=== PATIENT | male | born 1970 | race Caucasian/White ===

== ENCOUNTER 2017-02-12 13:39 | Inpatient (IN) | payer OTHER ==
[2017-02-12 15:51] VITALS: BMI 25.5
--- NOTE | 2017-02-12 20:13 | HP ---
CIWA Score - CIWA Score Nausea/Vomitin-Mild Nausea/No Vomiting Muscle Tremors: 1-None Visible, but [place] Anxiety: 3 Agitation: 1-Slight > Activity Paroxysmal Sweats: 2 Orientation: 1-Uncertain about Date Tacttile Disturbances: 0-None Auditory Disturbances: 1-Very Mild Visual Disturbances: 1-Very Mild Sensitivity Headache: 2-Mild CIWA-Ar Total Score: 13 Admission ROS BHS - HPI Chief Complaint: WITHDRAWAL SYMPTOMS Allergies/Adverse Reactions: Allergies Allergy/AdvReac Type Severity Reaction Status Date / Time Fish Containing Products Allergy Severe Hives Verified 02/12/17 17:53 History of Present Illness: 46 Y.O. MAN WITH A HISTORY OF ALCOHOL AND BENZODIAZEPINE DEPENDENCE IS HERE FOR DETOX. HE REPORTS HE LAST COMPLETED DETOX [address] AGO [address] [facility]. HE STATES HAVING A 5 YEAR HISTORY OF SOBRIETY. HE IS CURRENTLY ENROLLED IN A MMTP AND REPORTS LAST DAY MEDICATED WAS 02/12/17. Exam Limitations: No Limitations - Ebola screening Have you traveled outside of the country in the last 21 days: No Have you had contact with anyone from an Ebola affected area: No Have you been sick,other than usual withdrawal symptoms: No Do you have a fever: No - Review of Systems Constitutional: Chills EENT: reports: Blurred Vision Respiratory: reports: No Symptoms reported Cardiac: reports: No Symptoms Reported GI: reports: No Symptoms Reported : reports: No Symptoms Reported Musculoskeletal: reports: Back Pain Integumentary: reports: No Symptoms Reported Neuro: reports: Headache Endocrine: reports: No Symptoms Reported Hematology: reports: No Symptoms Reported Psychiatric: reports: Mood/Affect Appropiate, Anxious, Depressed Other Systems: Reviewed and Negative Patient History - Patient Medical History Hx Anemia: No Hx Asthma: Yes Hx Chronic Obstructive Pulmonary Disease (COPD): No Hx Cancer: No Hx Cardiac Disorders: Yes (HEART MURMUR ) Hx Congestive Heart Failure: No Hx Hypertension: No Hx Hypercholesterolemia: No Hx Pacemaker: No HX Cerebrovascular Accident: No Hx Seizures: No Hx Dementia: No Hx Diabetes: No Hx Gastrointestinal Disorders: Yes (GERD ) Hx Liver Disease: No Hx Genitourinary Disorders: No Hx Sexually Transmitted Disorders: No Hx Renal Disease (ESRD): No Hx Thyroid Disease: No Hx Human Immunodeficiency Virus (HIV): Yes Hx Hepatitis C: No Hx Depression: Yes Hx Suicide Attempt: No Hx Bipolar Disorder: Yes Hx Schizophrenia: Yes - Patient Surgical History Past Surgical History: Yes Hx Neurologic Surgery: No Hx Cataract Extraction: No Hx Cardiac Surgery: No Hx Lung Surgery: No Hx Breast Surgery: No Hx Breast Biopsy: No Hx Abdominal Surgery: No Hx Appendectomy: No Hx Cholecystectomy: No Hx Genitourinary Surgery: No Hx Section: No Other Surgical History: Anesthesia Reaction: No - PPD History Previous Implant?: Yes Documented Results: Negative w/o proof Implanted On Prior [facility] Admission?: No PPD to be Administered?: Yes - Reproductive History Patient is a Female of Child Bearing Age (11 -55 yrs old): No - Smoking Cessation Smoking history: Current every day smoker Have you smoked in the past 12 months: Yes Aproximately how many cigarettes per day: 8 Hx Chewing Tobacco Use: No Initiated information on smoking cessation: Yes 'Breaking Loose' booklet given: 02/12/17 - Substance & Tx. History Hx Alcohol Use: Yes Hx Substance Use: Yes Substance Use Type: Alcohol, Cocaine Hx Substance Use Treatment: Yes (DETOX AT [facility] 1 YEAR AGO; NEVER BEEN TO REHAB ) - Substances Abused Alcohol Route: Oral Frequency: Daily Amount used: LIQUOR- 2 PINTS, BEER- 2 SIX PACK Age of first use: 19 Date of Last Use: 02/11/17 Crack Route: Smoking Frequency: Daily Amount used: 3 BAGS Age of first use: 16 Date of Last Use: 02/11/17 Family Disease History - Family Disease History Family Disease History: Diabetes: Father, Heart Disease: Father, Respiratory: Mother Admission Physical Exam S - Vital Signs Vital Signs: Vital Signs - 24 hr 02/12/17 15:48 Temperature 98 F Pulse Rate 86 Respiratory 18 Rate Blood Pressure 115/75 - Physical General Appearance: Yes: Disheveled, Anxious HEENTM: Yes: Hearing grossly Normal, Normal ENT Inspection, Normocephalic Respiratory: Yes: Chest Non-Tender, Lungs Clear, Normal Breath Sounds, No Respiratory Distress, No Accessory Muscle Use Neck: Yes: No masses,lesions,Nodules Breast: Yes: Breast Exam Deferred Cardiology: Yes: Regular Rhythm, Regular Rate Abdominal: Yes: Within Normal Limits, Normal Bowel Sounds Genitourinary: Yes: Other (NO COMPLAINTS REPORTED) Back: Yes: Normal Inspection Musculoskeletal: Yes: full range of Motion, Gait Steady Extremities: Yes: Normal Capillary Refill, Normal Inspection, Normal Range of Motion, Non-Tender Neurological: Yes: tread booker II-XII NML intact, Alert, Motor Strength 5/5, Normal Mood /Affect, Normal Response Integumentary: Yes: Normal Color, Dry, Warm Lymphatic: Yes: Within Normal Limits - Diagnostic (1) Alcohol dependence with uncomplicated withdrawal Current Visit: Yes Status: Chronic (2) Uncomplicated opioid dependence Current Visit: Yes Status: Chronic (3) GERD (gastroesophageal reflux disease) Current Visit: Yes Status: Chronic (4) HIV (human immunodeficiency virus infection) Current Visit: Yes Status: Chronic (5) Asthma Current Visit: Yes Status: Chronic Cleared for Admission [facility] - Detox or Rehab [facility] Level of Care: Medically Managed Detox Regimen/Protocol: Valium S Breath Alcohol Content Breath Alcohol Content: 0 Urine Drug Screen - Results Drug Screen Negative: No Urine Drug Screen Results: THC-Marijuana, ASHUTOSH-Cocaine, OPI-Opiates, MTD- Methadone, TCA-Tricyclic Antidepress
[2017-02-12] MEDS ORDERED: MAGNESIUM HYDROX 2400MG/30ML ORAL SUSPENSION 30 ML CUP PO PRN (20:21)
[2017-02-12] MEDS ORDERED: MAGNESIUM CITRATE 300 ML BOTTLE PO PRN (20:21)
[2017-02-12] MEDS ORDERED: MENTHOL/PHENOL 1 EACH UD MM PRN (20:21)
[2017-02-12] MEDS ORDERED: IBUPROFEN 400 MG TABLET (FP) PO PRN (20:21)
[2017-02-12] MEDS ORDERED: diazePAM 5 MG TABLET PO PRN (20:21)
[2017-02-12] MEDS ORDERED: MAG HYDROX/AL HYDROX/SIMETH 30 ML UNIT-DOSE CUP PO PRN (20:21)
[2017-02-12] MEDS ORDERED: diazePAM 5 MG TABLET PO ONE (20:21)
[2017-02-12] MEDS ORDERED: guaiFENesin/D-METHORPHAN HB 10 ML UNIT-DOSE CUPS PO PRN (20:21)
[2017-02-12] MEDS ORDERED: hydrOXYzine PAMOATE 50 MG CAPSULE (FP) PO PRN (20:21)
[2017-02-12] MEDS ORDERED: diphenhydrAMINE HCL 50 MG CAPSULE PO PRN (20:21)
[2017-02-12] MEDS ORDERED: P-EPHED 60MG/TRIPROLIDI 2.5MG TABLET PO PRN (20:21)
[2017-02-12] MEDS ORDERED: LOPERAMIDE HCL 2 MG CAPSULE PO PRN (20:21)
[2017-02-12] MEDS ORDERED: ACETAMINOPHEN 325 MG TABLET (FP) PO PRN (20:21)
[2017-02-12] MEDS ORDERED: ALBUTEROL SO4 6.7 GM HFA INHALER IH PRN (20:35)
[2017-02-12] MEDS: THIAMINE HCL 100 MG TABLET (FP) PO SCH (21:46)
[2017-02-12] MEDS: diazePAM 5 MG TABLET PO SCH (21:49)
[2017-02-12] MEDS ORDERED: ALBUTEROL SO4 6.7 GM HFA INHALER IH SCH (22:00)
[2017-02-13 01:43] LABS: URINE APPEARANCE SLCLOUDY; URINE BLOOD NEGATIVE (NEGATIVE); URINE COLOR AMBER; URINE GLUCOSE (UA) NEGATIVE (NEGATIVE); URINE KETONE TRACE (NEGATIVE); URINE LEUK ESTERASE NEGATIVE (NEGATIVE); URINE NITRITE NEGATIVE (NEGATIVE); URINE UROBILINOGEN 4.0 E.U/dl mg/dL (0.2-1.0)
[2017-02-13 01:48] LABS: URINE PROTEIN 1+ (NEGATIVE)
[2017-02-13 01:54] LABS: URINE MUCUS MANY; URINE RBC 1 /hpf (0-3); URINE WBC 1 /hpf (3-5)
[2017-02-13] MEDS: diazePAM 5 MG TABLET PO SCH ×3 (05:53→22:07)
[2017-02-13] MEDS: METHADONE HCL 40 MG DISPERSABLE TABLET PO SCH (08:37)
--- NOTE | 2017-02-13 09:53 | EKG ---
Test Reason : Blood Pressure : / mmHG Vent. Rate : 075 BPM Atrial Rate : 075 BPM P-R Int : 148 ms QRS Dur : 074 ms QT Int : 410 ms P-R-T Axes : 053 055 040 degrees QTc Int : 457 ms NORMAL SINUS RHYTHM NORMAL ECG NO PREVIOUS ECGS AVAILABLE Confirmed by NAYE BAGLEY, IVELISSE ([id number]) on 02/13/2017 9:52:58 AM Referred By: Confirmed By:IVELISSE YANCEY MD
[2017-02-13 09:56] LABS: MCH 30.3 pg (25.7-33.7); MCHC 32.4 g/dl (32.0-35.9); MEAN CELL VOLUME 93.6 fl (80-96); MEAN PLT VOLUME 9.7 fl (7.5-11.1); PLATELET COUNT 114 K/MM3 (134-434); WHITE BLOOD COUNT 3.3 K/mm3 (4.0-10.0)
[2017-02-13] MEDS: PRENATAL VITAMINS W/ FOLIC ACID TABLET (FP) PO SCH (10:07)
[2017-02-13] MEDS: RANITIDINE HCL 150 MG TABLET (FP) PO SCH (10:07)
[2017-02-13] MEDS: PATIENT'S OWN MEDICATION (NON-FORMULARY) (Emtricitabine/Tenofov Alafenam [Descovy 200-25 M PO SCH (10:09)
[2017-02-13 10:54] LABS: ALBUMIN 3.1 g/dl (3.4-5.0); ALK PHOS 102 U/L (45-117); ANION GAP 9 (8-16); BILIRUBIN,TOTAL 0.6 mg/dL (0.2-1.0); CALCIUM 8.3 mg/dL (8.5-10.1); CO2 28 mmol/L (21-32); CREATININE 0.8 mg/dL (0.7-1.3); GLUCOSE,RANDOM 99 mg/dL (74-106); SGOT/AST 59 U/L (15-37); SGPT/ALT 45 U/L (12-78); TOT PROT 6.3 g/dl (6.4-8.2)
--- NOTE | 2017-02-13 12:07 | PN ---
S CIWA - CIWA Score Nausea/Vomitin Muscle Tremors: 4-Moderate,w/Arms Extend Anxiety: 4-Mod. Anxious/Guarded Agitation: 2 Paroxysmal Sweats: No Perspiration Orientation: 4Disoriented Place/Person Tacttile Disturbances: 3-Moderate Itch/Numb/Burn Auditory Disturbances: 0-None Visual Disturbances: 0-None Headache: 0-None Present CIWA-Ar Total Score: 20 BHS Progress Note (SOAP) Subjective: Nausea, Anxious, Tremors. Objective: PT. A & O X 2 (DISORIENTED ABOUT CURRENT LOCATION). PT. OBSERVED AMBULATING ON UNIT. NO ACUTE DISTRESS. 02/13/17 12:01 Vital Signs Temperature 97.4 F L 02/13/17 09:19 Pulse Rate 95 H 02/13/17 09:19 Respiratory Rate 18 02/13/17 09:19 Blood Pressure 119/79 02/13/17 09:19 O2 Sat by Pulse Oximetry (%) Laboratory Tests 02/12/17 02/13/17 02/13/17 23:09 07:00 07:00 WBC 3.3 L RBC 4.06 Hgb 12.3 Hct 38.0 MCV 93.6 MCH 30.3 MCHC 32.4 RDW 12.0 Plt Count 114 L MPV 9.7 Sodium 140 Potassium 3.5 Chloride 103 Carbon Dioxide 28 Anion Gap 9 BUN 11 Creatinine 0.8 Creat Clearance w eGFR > 60 Random Glucose 99 Calcium 8.3 L Total Bilirubin 0.6 AST 59 H ALT 45 Alkaline Phosphatase 102 Total Protein 6.3 L Albumin 3.1 L Urine Color Purvi Urine Appearance Slcloudy Urine pH 5.0 Ur Specific [place] >= 1.030 H Urine Protein 1+ H Urine Glucose (UA) Negative Urine Ketones Trace H Urine Blood Negative Urine Nitrite Negative Urine Bilirubin 2.0 Urine Urobilinogen 4.0 e.u/dl Urine RBC 1 Urine WBC 1 Ur Epithelial Cells Rare Urine Mucus Many RPR Titer 02/13/17 07:00 WBC RBC Hgb Hct MCV MCH MCHC RDW Plt Count MPV Sodium Potassium Chloride Carbon Dioxide Anion Gap BUN Creatinine Creat Clearance w eGFR Random Glucose Calcium Total Bilirubin AST ALT Alkaline Phosphatase Total Protein Albumin Urine Color Urine Appearance Urine pH Ur Specific [place] Urine Protein Urine Glucose (UA) Urine Ketones Urine Blood Urine Nitrite Urine Bilirubin Urine Urobilinogen Urine RBC Urine WBC Ur Epithelial Cells Urine Mucus RPR Titer Nonreactive LABS NOTED. HCV AB RESULT PENDING. 02/13/17 12:07 Assessment: 02/13/17 12:02 WITHDRAWAL SYMPTOMS. Plan: CONTINUE DETOX. REPEAT UA AND CBC (02/15/17) FOR ABNORMAL ADMISSION VALUES.
[2017-02-13] MEDS: TOLNAFTATE 1% CREAM 15 GM TUBE TP SCH ×2 (13:44→22:09)
[2017-02-13] MEDS: CLOTRIMAZOLE 1% CREAM 15 GM TUBE TP SCH ×2 (13:44→22:08)
--- NOTE | 2017-02-13 15:28 | CONSULT ---
[facility] Psychiatric Consult - Data Date of interview: 02/13/17 Admission source: [facility] Identifying data: Readmission to [facility] for this 46 y/o [place] male seeking detox treatment on for heroin,cocaine and alcohol dependence.Patient is single,a father of five,domiciled,unemployed and supported on [employer] funds. Substance Abuse History: Confirmed by patient in this interview. Smoking Cessation. Smoking history: Current every day smoker. Have you smoked in the past 12 months: Yes. Aproximately how many cigarettes per day: 8. Hx Chewing Tobacco Use: No. Initiated information on smoking cessation: Yes. 'Breaking Loose' booklet given: 02/12/17. - Substance & Tx. History. Hx Alcohol Use: Yes. Hx Substance Use: Yes. Substance Use Type: Alcohol, Cocaine. Hx Substance Use Treatment: Yes (DETOX AT [facility] 1 YEAR AGO; NEVER BEEN TO REHAB ). - Substances Abused. Alcohol. Route: Oral. Frequency: Daily. Amount used : LIQUOR- 2 PINTS, BEER- 2 SIX PACK. Age of first use: 19. Date of Last Use: 02/11/17. Crack. Route: Smoking. Frequency: Daily. Amount used: 3 BAGS. Age of first use: 16. Date of Last Use: 02/11/17 Medical History: Remarkable for HIV infection (on ART medications),GERD and bronchial asthma. Psychiatric History: Diagnosed with Bipolar Disorder and Panic Disorder.Patient admits to three psychiatric hospitalizations (all in [facility]Started psychiatric treatment in 1992 (during incarceration).Medicated with klonopin, ambien and elavil (doses not recalled).Mr Bhatt gets his psychiatric OPD services at [facility] in the [place].He is currently on methadone maintenance (120 mg/day).Remote history of one suicide attempt via hanging. Physical/Sexual Abuse/Trauma History: No reported history of abuse. Additional Comment: Urine Drug Screen Results: THC-Marijuana, ASHUTOSH-Cocaine, OPI- Opiates, MTD-Methadone, TCA-Tricyclic Antidepressant.Noted. Mental Status Exam - Mental Status Exam Alert and Oriented to: Time, Place, Person Cognitive Function: Good Patient Appearance: Well Groomed Mood: Hopeful, Euthymic Affect: Appropriate, Normal Range Patient Behavior: Appropriate, Cooperative Speech Pattern: Clear Voice Loudness: Normal Thought Process: Goal Oriented Thought Disorder: Not Present Hallucinations: Denies Suicidal Ideation: Denies Homicidal Ideation: Denies Insight/Judgement: Poor Sleep: Poorly, Difficulty falling asleep Appetite: Good Muscle strength/Tone: Normal Gait/Station: Normal Psychiatric Findings - Problem List ([place] 1, 2,3) (1) Alcohol dependence with uncomplicated withdrawal Current Visit: Yes Status: Chronic (2) Opioid dependence on agonist therapy Current Visit: Yes Status: Acute (3) Cocaine dependence Current Visit: Yes Status: Acute (4) Nicotine dependence Current Visit: Yes Status: Acute (5) Substance induced mood disorder Current Visit: Yes Status: Acute (6) Asthma Current Visit: Yes Status: Chronic (7) GERD (gastroesophageal reflux disease) Current Visit: Yes Status: Chronic (8) HIV (human immunodeficiency virus infection) Current Visit: Yes Status: Chronic (9) Insomnia Current Visit: Yes Status: Acute - Initial Treatment Plan Initial Treatment Plan: Psychoeducation.Detoxification.Medications : ambien 10 mg po hs + elavil 50 mg po hs at patient's request (confirmed by pharmacy claims of 01/14/17 at Pharmacy).Script for olanzapine 20 mg/day is found in claims as well but the patient declines to have this drug resumed in this hospital course.Side effects/benefits discussed (ambien/elavil).Observation.
[2017-02-13] MEDS: THIAMINE HCL 100 MG TABLET (FP) PO SCH (22:07)
[2017-02-13] MEDS: ZOLPIDEM TARTRATE 10 MG TABLET (PARK CARE ONLY) PO PRN (22:07)
[2017-02-14] MEDS: METHADONE HCL 40 MG DISPERSABLE TABLET PO SCH (07:53)
[2017-02-14] MEDS: RANITIDINE HCL 150 MG TABLET (FP) PO SCH (10:18)
[2017-02-14] MEDS: CLOTRIMAZOLE 1% CREAM 15 GM TUBE TP SCH ×2 (10:18→22:10)
[2017-02-14] MEDS: PATIENT'S OWN MEDICATION (NON-FORMULARY) (Emtricitabine/Tenofov Alafenam [Descovy 200-25 M PO SCH (10:18)
[2017-02-14] MEDS: diazePAM 5 MG TABLET PO SCH ×2 (10:18→22:09)
[2017-02-14] MEDS: TOLNAFTATE 1% CREAM 15 GM TUBE TP SCH ×2 (10:18→22:09)
[2017-02-14] MEDS: PRENATAL VITAMINS W/ FOLIC ACID TABLET (FP) PO SCH (10:18)
--- NOTE | 2017-02-14 10:36 | PN ---
[facility] CIWA - CIWA Score Nausea/Vomitin-No Nausea/No Vomiting Muscle Tremors: 4-Moderate,w/Arms Extend Anxiety: 4-Mod. Anxious/Guarded Agitation: 4-Moderately Restless Paroxysmal Sweats: 1-Minimal Palms Moist Orientation: 0-Oriented Tacttile Disturbances: 3-Moderate Itch/Numb/Burn Auditory Disturbances: 0-None Visual Disturbances: 0-None Headache: 0-None Present CIWA-Ar Total Score: 16 S Progress Note (SOAP) Subjective: ANXIETY,TREMORS, SWEATS,FATIGUE. Objective: 02/14/17 10:35 Vital Signs Temperature 97.0 F L 02/14/17 09:10 Pulse Rate 83 02/14/17 09:10 Respiratory Rate 18 02/14/17 09:10 Blood Pressure 133/97 02/14/17 09:10 O2 Sat by Pulse Oximetry (%) Laboratory Last Values WBC 3.3 K/mm3 (4.0-10.0) L 02/13/17 07:00 RBC 4.06 M/mm3 (4.00-5.60) 02/13/17 07:00 Hgb 12.3 GM/dL (11.7-16.9) 02/13/17 07:00 Hct 38.0 % (35.4-49) 02/13/17 07:00 MCV 93.6 fl (80-96) 02/13/17 07:00 MCH 30.3 pg (25.7-33.7) 02/13/17 07:00 MCHC 32.4 g/dl (32.0-35.9) 02/13/17 07:00 RDW 12.0 % (11.9-15.9) 02/13/17 07:00 Plt Count 114 K/MM3 (134-434) L 02/13/17 07:00 MPV 9.7 fl (7.5-11.1) 02/13/17 07:00 Sodium 140 mmol/L (136-145) 02/13/17 07:00 Potassium 3.5 mmol/L (3.5-5.1) 02/13/17 07:00 Chloride 103 mmol/L (98-107) 02/13/17 07:00 Carbon Dioxide 28 mmol/L (21-32) 02/13/17 07:00 Anion Gap 9 (8-16) 02/13/17 07:00 BUN 11 mg/dL (7-18) 02/13/17 07:00 Creatinine 0.8 mg/dL (0.7-1.3) 02/13/17 07:00 Creat Clearance w eGFR > 60 (>60) 02/13/17 07:00 Random Glucose 99 mg/dL (74-106) 02/13/17 07:00 Calcium 8.3 mg/dL (8.5-10.1) L 02/13/17 07:00 Total Bilirubin 0.6 mg/dL (0.2-1.0) 02/13/17 07:00 AST 59 U/L (15-37) H 02/13/17 07:00 ALT 45 U/L (12-78) 02/13/17 07:00 Alkaline Phosphatase 102 U/L (45-117) 02/13/17 07:00 Total Protein 6.3 g/dl (6.4-8.2) L 02/13/17 07:00 Albumin 3.1 g/dl (3.4-5.0) L 02/13/17 07:00 Urine Color Purvi 02/12/17 23:09 Urine Appearance Slcloudy 02/12/17 23:09 Urine pH 5.0 (5.0-8.0) 02/12/17 23:09 Ur Specific [place] >= 1.030 (1.005-1.025) H 02/12/17 23:09 Urine Protein 1+ (NEGATIVE) H 02/12/17 23:09 Urine Glucose (UA) Negative (NEGATIVE) 02/12/17 23:09 Urine Ketones Trace (NEGATIVE) H 02/12/17 23:09 Urine Blood Negative (NEGATIVE) 02/12/17 23:09 Urine Nitrite Negative (NEGATIVE) 02/12/17 23:09 Urine Bilirubin 2.0 (NEGATIVE) 02/12/17 23:09 Urine Urobilinogen 4.0 e.u/dl mg/dL (0.2-1.0) 02/12/17 23:09 Urine RBC 1 /hpf (0-3) 02/12/17 23:09 Urine WBC 1 /hpf (3-5) 02/12/17 23:09 Ur Epithelial Cells Rare /hpf (FEW) 02/12/17 23:09 Urine Mucus Many 02/12/17 23:09 RPR Titer Nonreactive (NONREACTIVE) 02/13/17 07:00 Hepatitis C Antibody >11.0 s/co ratio (0.0-0.9) H 02/12/17 07:00 Assessment: 02/14/17 10:36 WITHDRAWAL SX Plan: CONTINUE DETOX
[2017-02-14 13:18] LABS: URINE APPEARANCE CLEAR; URINE BILIRUBIN NEGATIVE (NEGATIVE); URINE BLOOD NEGATIVE (NEGATIVE); URINE COLOR LTYELLOW; URINE GLUCOSE (UA) NEGATIVE (NEGATIVE); URINE KETONE NEGATIVE (NEGATIVE); URINE LEUK ESTERASE NEGATIVE (NEGATIVE); URINE NITRITE NEGATIVE (NEGATIVE); URINE PROTEIN NEGATIVE (NEGATIVE); URINE UROBILINOGEN NEGATIVE mg/dL (0.2-1.0)
[2017-02-14] MEDS: THIAMINE HCL 100 MG TABLET (FP) PO SCH (22:09)
[2017-02-14] MEDS: ZOLPIDEM TARTRATE 10 MG TABLET (PARK CARE ONLY) PO PRN (22:10)
[2017-02-15] MEDS: METHADONE HCL 40 MG DISPERSABLE TABLET PO SCH (07:38)
[2017-02-15 09:40] LABS: BASOPHIL 0.5 % (0-2.0); EOSINOPHIL 5.3 % (0-4.5); MCHC 32.9 g/dl (32.0-35.9); MEAN PLT VOLUME 9.3 fl (7.5-11.1); NEUTROPHILS 33.4 % (42.8-82.8); PLATELET COUNT 113 K/MM3 (134-434); RDW 12.2 % (11.9-15.9); WHITE BLOOD COUNT 3.7 K/mm3 (4.0-10.0)
[2017-02-15] MEDS: RANITIDINE HCL 150 MG TABLET (FP) PO SCH (10:07)
[2017-02-15] MEDS: CLOTRIMAZOLE 1% CREAM 15 GM TUBE TP SCH ×2 (10:08→22:30)
[2017-02-15] MEDS: PRENATAL VITAMINS W/ FOLIC ACID TABLET (FP) PO SCH (10:08)
[2017-02-15] MEDS: diazePAM 5 MG TABLET PO SCH ×2 (10:08→22:30)
--- NOTE | 2017-02-15 11:45 | PN ---
BHS Progress Note (SOAP) Subjective: Body Aches, Stomach Cramping, Anxious, Sweating. Objective: PT. A & O X 2 (DISORIENTED ABOUT DAY /DATE). PT. OBSERVED AMBULATING ON UNIT. NO ACUTE DISTRESS. 02/15/17 11:43 Vital Signs Temperature 97.5 F L 02/15/17 07:35 Pulse Rate 81 02/15/17 07:35 Respiratory Rate 18 02/15/17 07:35 Blood Pressure 121/86 02/15/17 07:35 O2 Sat by Pulse Oximetry (%) Laboratory Tests 02/12/17 02/12/17 02/13/17 07:00 23:09 07:00 WBC 3.3 L RBC 4.06 Hgb 12.3 Hct 38.0 MCV 93.6 MCH 30.3 MCHC 32.4 RDW 12.0 Plt Count 114 L MPV 9.7 Neutrophils % Lymphocytes % Monocytes % Eosinophils % Basophils % Sodium Potassium Chloride Carbon Dioxide Anion Gap BUN Creatinine Creat Clearance w eGFR Random Glucose Calcium Total Bilirubin AST ALT Alkaline Phosphatase Total Protein Albumin Urine Color Purvi Urine Appearance Slcloudy Urine pH 5.0 Ur Specific [place] >= 1.030 H Urine Protein 1+ H Urine Glucose (UA) Negative Urine Ketones Trace H Urine Blood Negative Urine Nitrite Negative Urine Bilirubin 2.0 Urine Urobilinogen 4.0 e.u/dl Urine RBC 1 Urine WBC 1 Ur Epithelial Cells Rare Urine Mucus Many RPR Titer Hepatitis C Antibody >11.0 H 02/13/17 02/13/17 02/14/17 07:00 07:00 11:30 WBC RBC Hgb Hct MCV MCH MCHC RDW Plt Count MPV Neutrophils % Lymphocytes % Monocytes % Eosinophils % Basophils % Sodium 140 Potassium 3.5 Chloride 103 Carbon Dioxide 28 Anion Gap 9 BUN 11 Creatinine 0.8 Creat Clearance w eGFR > 60 Random Glucose 99 Calcium 8.3 L Total Bilirubin 0.6 AST 59 H ALT 45 Alkaline Phosphatase 102 Total Protein 6.3 L Albumin 3.1 L Urine Color Ltyellow Urine Appearance Clear Urine pH 5.0 Ur Specific [place] 1.020 Urine Protein Negative Urine Glucose (UA) Negative Urine Ketones Negative Urine Blood Negative Urine Nitrite Negative Urine Bilirubin Negative Urine Urobilinogen Negative Urine RBC Urine WBC Ur Epithelial Cells Urine Mucus RPR Titer Nonreactive Hepatitis C Antibody 02/15/17 07:00 WBC 3.7 L RBC 4.00 Hgb 12.4 Hct 37.6 MCV 94.0 MCH 31.0 MCHC 32.9 RDW 12.2 Plt Count 113 L MPV 9.3 Neutrophils % 33.4 L Lymphocytes % 54.4 H Monocytes % 6.4 Eosinophils % 5.3 H Basophils % 0.5 Sodium Potassium Chloride Carbon Dioxide Anion Gap BUN Creatinine Creat Clearance w eGFR Random Glucose Calcium Total Bilirubin AST ALT Alkaline Phosphatase Total Protein Albumin Urine Color Urine Appearance Urine pH Ur Specific [place] Urine Protein Urine Glucose (UA) Urine Ketones Urine Blood Urine Nitrite Urine Bilirubin Urine Urobilinogen Urine RBC Urine WBC Ur Epithelial Cells Urine Mucus RPR Titer Hepatitis C Antibody LABS NOTED. RESULTS OF REPEAT CBC AND UA AND HCV AB RESULTS NOTED. 02/15/17 11:47 Assessment: 02/15/17 11:44 WITHDRAWAL SYMPTOMS. Plan: CONTINUE DETOX.
[2017-02-15] MEDS: TOLNAFTATE 1% CREAM 15 GM TUBE TP SCH ×2 (11:48→22:30)
[2017-02-15] MEDS: PATIENT'S OWN MEDICATION (NON-FORMULARY) (Emtricitabine/Tenofov Alafenam [Descovy 200-25 M PO SCH (11:56)
--- NOTE | 2017-02-15 16:58 | PN ---
[facility] Progress Note Note: Patient made aware of Positive HCV Antibody Result while admitted for Detox. Patient offered opportunity to ask questions about result. Patient advised to follow-up after discharge from Detox with [facility] / HIV Care Medical Provider (Dr. Villasenor, [address] [place] [address], N[address]) for follow-up evaluation. Patient verbalized understanding of recommendations. Copy of HCV Antibody Result given to patient. Bailey lBack NP
[2017-02-15] MEDS: THIAMINE HCL 100 MG TABLET (FP) PO SCH (22:30)
[2017-02-16 06:15] VITALS: BP 118/86; PULSE 79; TEMP 97
[2017-02-16] MEDS: METHADONE HCL 40 MG DISPERSABLE TABLET PO SCH (07:44)
[2017-02-16] MEDS ORDERED: diazePAM 5 MG TABLET PO SCH (10:00)
--- NOTE | 2017-02-16 21:35 | DS ---
[facility] Detox Discharge Summary Admission Date: 02/12/17 Discharge Date: 02/16/17 - History Present History: Alcohol Dependence, Cocaine Dependence, Opioid Dependence, MMTP Additional Comments: PATIENT GOING HOME, WILL RETURN TO [facility] ([place] FOR AFTERCARE. PATIENT WAS DISCHARGED FROM DETOX UNIT IN STABLE MEDICAL CONDITION. Pertinent Past History: Asthma, HIV, Nicotine Dependence, MMTP, History of Heart Murmur, Insomnia, GERD. - Physical Exam Results Vital Signs: Vital Signs Temperature 97 F L 02/16/17 06:14 Pulse Rate 79 02/16/17 06:14 Respiratory Rate 18 02/16/17 06:14 Blood Pressure 118/86 02/16/17 06:14 O2 Sat by Pulse Oximetry (%) Pertinent Admission Physical Exam Findings: WITHDRAWAL SYMPTOMS. Laboratory Tests 02/12/17 02/12/17 02/13/17 07:00 23:09 07:00 WBC 3.3 L RBC 4.06 Hgb 12.3 Hct 38.0 MCV 93.6 MCH 30.3 MCHC 32.4 RDW 12.0 Plt Count 114 L MPV 9.7 Neutrophils % Lymphocytes % Monocytes % Eosinophils % Basophils % Sodium Potassium Chloride Carbon Dioxide Anion Gap BUN Creatinine Creat Clearance w eGFR Random Glucose Calcium Total Bilirubin AST ALT Alkaline Phosphatase Total Protein Albumin Urine Color Purvi Urine Appearance Slcloudy Urine pH 5.0 Ur Specific [place] >= 1.030 H Urine Protein 1+ H Urine Glucose (UA) Negative Urine Ketones Trace H Urine Blood Negative Urine Nitrite Negative Urine Bilirubin 2.0 Urine Urobilinogen 4.0 e.u/dl Urine RBC 1 Urine WBC 1 Ur Epithelial Cells Rare Urine Mucus Many RPR Titer Hepatitis C Antibody >11.0 H 02/13/17 02/13/17 02/14/17 07:00 07:00 11:30 WBC RBC Hgb Hct MCV MCH MCHC RDW Plt Count MPV Neutrophils % Lymphocytes % Monocytes % Eosinophils % Basophils % Sodium 140 Potassium 3.5 Chloride 103 Carbon Dioxide 28 Anion Gap 9 BUN 11 Creatinine 0.8 Creat Clearance w eGFR > 60 Random Glucose 99 Calcium 8.3 L Total Bilirubin 0.6 AST 59 H ALT 45 Alkaline Phosphatase 102 Total Protein 6.3 L Albumin 3.1 L Urine Color Ltyellow Urine Appearance Clear Urine pH 5.0 Ur Specific [place] 1.020 Urine Protein Negative Urine Glucose (UA) Negative Urine Ketones Negative Urine Blood Negative Urine Nitrite Negative Urine Bilirubin Negative Urine Urobilinogen Negative Urine RBC Urine WBC Ur Epithelial Cells Urine Mucus RPR Titer Nonreactive Hepatitis C Antibody 02/15/17 07:00 WBC 3.7 L RBC 4.00 Hgb 12.4 Hct 37.6 MCV 94.0 MCH 31.0 MCHC 32.9 RDW 12.2 Plt Count 113 L MPV 9.3 Neutrophils % 33.4 L Lymphocytes % 54.4 H Monocytes % 6.4 Eosinophils % 5.3 H Basophils % 0.5 Sodium Potassium Chloride Carbon Dioxide Anion Gap BUN Creatinine Creat Clearance w eGFR Random Glucose Calcium Total Bilirubin AST ALT Alkaline Phosphatase Total Protein Albumin Urine Color Urine Appearance Urine pH Ur Specific [place] Urine Protein Urine Glucose (UA) Urine Ketones Urine Blood Urine Nitrite Urine Bilirubin Urine Urobilinogen Urine RBC Urine WBC Ur Epithelial Cells Urine Mucus RPR Titer Hepatitis C Antibody LABS NOTED. - Treatment Hospital Course: Detox Protocol Followed, Detoxed Safely, Responded well, Discharged Condition Good Patient has Accepted a Rehab Referral to: NO. PATIENT WILL RETURN TO [facility] ([place], [place]) FOR AFTERCARE - Medication Discharge Medications: Ambulatory Orders Albuterol Sulfate Inhaler - [Ventolin Hfa Inhaler -] 1 - 2 inh PO QID 02/12/17 Emtricitabine/Tenofov Alafenam [Descovy 200-25 mg Tablet] 1 each PO DAILY - Diagnosis (1) Alcohol dependence with uncomplicated withdrawal Status: Acute (2) Cocaine dependence Status: Acute Qualifiers: Substance use status: uncomplicated Qualified Code(s): F14.20 - Cocaine dependence, uncomplicated (3) Insomnia Status: Acute Qualifiers: Insomnia type: unspecified Qualified Code(s): G47.00 - Insomnia, unspecified (4) Nicotine dependence Status: Chronic Qualifiers: Nicotine product type: cigarettes Substance use status: in withdrawal Qualified Code(s): F17.213 - Nicotine dependence, cigarettes, with withdrawal (5) Substance induced mood disorder Status: Acute (6) Asthma Status: Chronic Qualifiers: Asthma severity: mild intermittent Asthma complication type: uncomplicated Qualified Code(s): J45.20 - Mild intermittent asthma, uncomplicated (7) GERD (gastroesophageal reflux disease) Status: Chronic Qualifiers: Esophagitis presence: esophagitis presence not specified Qualified Code(s): K21.9 - Gastro-esophageal reflux disease without esophagitis (8) HIV (human immunodeficiency virus infection) Status: Chronic (9) Opioid dependence on agonist therapy Status: Chronic - AMA Did Patient Leave Against Medical Advice: No
[2017-02-17 00:06] LABS: HCV LOG 10 5.601 (.)
== END 2017-02-16 09:50 | disposition home or self-care (01) | DRG 773 ==
LOC: YASAS 13:39 → Y3N 17:53
PROVIDERS: ADMIT Internal Medicine; ATTEND Internal Medicine
PROC: HZ2ZZZZ Detoxification Services for Substance Abuse Treatment (ICD-10-PCS; principal; 2017-02-12)
DX: F11.20 Opioid dependence, uncomplicated (principal); F10.230 Alcohol dependence with withdrawal, uncomplicated; F14.20 Cocaine dependence, uncomplicated; F17.213 Nicotine dependence, cigarettes, with withdrawal; F19.24 Other psychoactive substance dependence with psychoactive substance-induced mood disorder; G47.00 Insomnia, unspecified; Z21 Asymptomatic human immunodeficiency virus [HIV] infection status; J45.20 Mild intermittent asthma, uncomplicated; K21.9 Gastro-esophageal reflux disease without esophagitis
CPT/HCPCS: 36415; 80053; 81003; 81015; 85025; 85027; 86593; 86803; 87522; 93005; 93010

== ENCOUNTER 2020-10-14 14:46 | Inpatient (IN) | payer OTHER ==
[2020-10-14 16:49] VITALS: BMI 27.3
[2020-10-14] MEDS ORDERED: ACETAMINOPHEN 325 MG TABLET (FP) PO PRN ×2 (19:53)
[2020-10-14] MEDS ORDERED: MAGNESIUM HYDROX 2400MG/30ML ORAL SUSPENSION 30 ML CUP PO PRN (19:53)
[2020-10-14] MEDS ORDERED: NICOTINE POLACRILEX 2 MG GUM BUC PRN (19:53)
[2020-10-14] MEDS ORDERED: MENTHOL/PHENOL 1 EACH UD MM PRN (19:53)
[2020-10-14] MEDS ORDERED: MAG HYDROX/AL HYDROX/SIMETH 30 ML UNIT-DOSE CUP PO PRN (19:53)
[2020-10-14] MEDS ORDERED: LORazepam 1 MG TABLET PO PRN (19:53)
[2020-10-14] MEDS ORDERED: MAGNESIUM CITRATE 300 ML BOTTLE PO PRN (19:53)
[2020-10-14] MEDS ORDERED: BISMUTH SUBSALICYLATE 524 MG/30 ML PO PRN (19:53)
[2020-10-14] MEDS ORDERED: METHOCARBAMOL 500 MG TABLET PO PRN (19:53)
[2020-10-14] MEDS ORDERED: IBUPROFEN 400 MG TABLET (FP) PO PRN (19:53)
[2020-10-14] MEDS ORDERED: diazePAM 5 MG TABLET PO PRN (19:53)
[2020-10-14] MEDS ORDERED: ONDANSETRON *ODT* 4 MG TABLET SL PRN (19:53)
[2020-10-14] MEDS ORDERED: diazePAM 5 MG TABLET PO SCH (23:00)
[2020-10-14] MEDS: MELATONIN 5 MG TABLETS PO SCH (23:24)
[2020-10-14] MEDS: THIAMINE HCL 100 MG TABLET (FP) PO SCH (23:24)
[2020-10-14] MEDS: LORazepam 2 MG TABLET PO SCH (23:24)
[2020-10-15] MEDS: LORazepam 2 MG TABLET PO SCH ×4 (07:48→22:16)
[2020-10-15 10:19] LABS: HEMATOCRIT 37.3 % (35.4-49); HEMOGLOBIN 12.4 GM/dL (11.7-16.9); MCH 32.2 pg (25.7-33.7); MCHC 33.1 g/dl (32.0-35.9); MEAN CELL VOLUME 97.3 fl (80-96); MEAN PLT VOLUME 8.5 fl (7.5-11.1); PLATELET COUNT 151 K/MM3 (134-434); RBC 3.84 M/mm3 (4.00-5.60); RDW 13.5 % (11.9-15.9); WHITE BLOOD COUNT 3.2 K/mm3 (4.0-10.0)
[2020-10-15 10:27] LABS: CALCIUM 7.9 mg/dL (8.5-10.1)
[2020-10-15 10:30] LABS: CREATININE 0.8 mg/dL (0.55-1.3)
[2020-10-15 10:32] LABS: BILIRUBIN,TOTAL 0.5 mg/dL (0.2-1)
[2020-10-15] MEDS ORDERED: METHADONE HCL 10 MG TABLET PO SCH (11:30)
[2020-10-15] MEDS ORDERED: METHADONE HCL 40 MG DISPERSABLE TABLET ONE (11:38)
[2020-10-15] MEDS ORDERED: METHADONE HCL 10 MG TABLET ONE (11:38)
[2020-10-15] MEDS: METHADONE 120 MG, METHADONE 10 MG PO SCH (11:42)
[2020-10-15] MEDS: PRENATAL VITAMINS W/ FOLIC ACID TABLET (FP) PO SCH (11:43)
[2020-10-15] MEDS: NICOTINE 7 MG/24 HOURS TOPICAL PATCH TD SCH (11:44)
[2020-10-15] MEDS: AMITRIPTYLINE HCL 25 MG TABLET PO SCH (22:15)
[2020-10-15] MEDS: MELATONIN 5 MG TABLETS PO SCH (22:15)
[2020-10-15] MEDS: THIAMINE HCL 100 MG TABLET (FP) PO SCH (22:15)
[2020-10-16] MEDS ORDERED: METHADONE HCL 10 MG TABLET ONE (03:39)
[2020-10-16] MEDS ORDERED: METHADONE HCL 40 MG DISPERSABLE TABLET ONE (03:39)
[2020-10-16] MEDS ORDERED: diazePAM 5 MG TABLET PO SCH (06:00)
[2020-10-16] MEDS: LORazepam 1 MG TABLET PO SCH ×4 (06:39→22:24)
[2020-10-16] MEDS: METHADONE 120 MG, METHADONE 10 MG PO SCH (06:39)
[2020-10-16] MEDS: PRENATAL VITAMINS W/ FOLIC ACID TABLET (FP) PO SCH (10:26)
[2020-10-16] MEDS: NICOTINE 7 MG/24 HOURS TOPICAL PATCH TD SCH (10:27)
[2020-10-16] MEDS ORDERED: LACTULOSE 20 GM/30 ML UDC (FOR ORAL USE ONLY) PO ONE (12:27)
[2020-10-16] MEDS: DOCUSATE SODIUM 100 MG CAPSULE (FP) PO SCH (22:24)
[2020-10-16] MEDS: AMITRIPTYLINE HCL 25 MG TABLET PO SCH (22:24)
[2020-10-16] MEDS: MELATONIN 5 MG TABLETS PO SCH (22:24)
[2020-10-16] MEDS: THIAMINE HCL 100 MG TABLET (FP) PO SCH (22:24)
[2020-10-17] MEDS ORDERED: LORazepam 0.5 MG TABLET PO PRN
[2020-10-17] MEDS ORDERED: METHADONE HCL 10 MG TABLET ONE (04:30)
[2020-10-17] MEDS ORDERED: METHADONE HCL 40 MG DISPERSABLE TABLET ONE (04:30)
[2020-10-17] MEDS ORDERED: diazePAM 5 MG TABLET PO SCH (06:00)
[2020-10-17] MEDS: LORazepam 0.5 MG TABLET PO SCH ×4 (07:11→22:27)
[2020-10-17] MEDS: METHADONE 120 MG, METHADONE 10 MG PO SCH (07:45)
[2020-10-17] MEDS: hydrOXYzine PAMOATE 25 MG CAPSULE (FP) PO PRN ×2 (10:18→22:27)
[2020-10-17] MEDS: PRENATAL VITAMINS W/ FOLIC ACID TABLET (FP) PO SCH (10:18)
[2020-10-17] MEDS: NICOTINE 7 MG/24 HOURS TOPICAL PATCH TD SCH (10:19)
[2020-10-17] MEDS: DOCUSATE SODIUM 100 MG CAPSULE (FP) PO SCH (22:25)
[2020-10-17] MEDS: AMITRIPTYLINE HCL 25 MG TABLET PO SCH (22:26)
[2020-10-17] MEDS: THIAMINE HCL 100 MG TABLET (FP) PO SCH (22:26)
[2020-10-17] MEDS: MELATONIN 5 MG TABLETS PO SCH (22:27)
[2020-10-18] MEDS ORDERED: METHADONE HCL 40 MG DISPERSABLE TABLET ONE (03:30)
[2020-10-18] MEDS ORDERED: METHADONE HCL 10 MG TABLET ONE (03:30)
[2020-10-18] MEDS ORDERED: LORazepam 0.5 MG TABLET PO ONE (05:00)
[2020-10-18] MEDS ORDERED: diazePAM 5 MG TABLET PO ONE (06:00)
[2020-10-18] MEDS: METHADONE 120 MG, METHADONE 10 MG PO SCH (06:23)
[2020-10-18] MEDS: PRENATAL VITAMINS W/ FOLIC ACID TABLET (FP) PO SCH (10:04)
[2020-10-18] MEDS: NICOTINE 7 MG/24 HOURS TOPICAL PATCH TD SCH (10:05)
[2020-10-18] MEDS: LACTULOSE 20 GM/30 ML UDC (FOR ORAL USE ONLY) PO SCH ×3 (13:58→21:24)
[2020-10-18] MEDS: AMITRIPTYLINE HCL 25 MG TABLET PO SCH (21:25)
[2020-10-18] MEDS: THIAMINE HCL 100 MG TABLET (FP) PO SCH (21:25)
[2020-10-18] MEDS: MELATONIN 5 MG TABLETS PO SCH (21:25)
[2020-10-18] MEDS: DOCUSATE SODIUM 100 MG CAPSULE (FP) PO SCH (21:25)
[2020-10-19] MEDS ORDERED: METHADONE HCL 40 MG DISPERSABLE TABLET ONE ×2 (04:35→10:24)
[2020-10-19] MEDS ORDERED: METHADONE HCL 10 MG TABLET ONE ×2 (04:35→10:24)
[2020-10-19 06:09] LABS: SARS-CoV-2 NAA Not Detected (Not Detected)
[2020-10-19] MEDS: METHADONE 120 MG, METHADONE 10 MG PO SCH (07:09)
[2020-10-19 09:14] VITALS: BP 124/86; PULSE 97; TEMP 96.4
[2020-10-19] MEDS ORDERED: METHADONE HCL 10 MG TABLET PO ONE (10:05)
[2020-10-19] MEDS ORDERED: METHADONE 120 MG, METHADONE 10 MG PO ONE (10:15)
[2020-10-19] MEDS: NICOTINE 7 MG/24 HOURS TOPICAL PATCH TD SCH (10:27)
[2020-10-19] MEDS: PRENATAL VITAMINS W/ FOLIC ACID TABLET (FP) PO SCH (10:27)
[2020-10-19] MEDS: LACTULOSE 20 GM/30 ML UDC (FOR ORAL USE ONLY) PO SCH (10:27)
== END 2020-10-19 13:00 | disposition other institution (70) | DRG 773 ==
LOC: YASAS 14:46 → Y3N 19:16
PROVIDERS: ADMIT Allergy & Immunology; ATTEND Allergy & Immunology
PROC: HZ2ZZZZ Detoxification Services for Substance Abuse Treatment (ICD-10-PCS; principal; 2020-10-14)
DX: F10.230 Alcohol dependence with withdrawal, uncomplicated (principal); F11.20 Opioid dependence, uncomplicated; F14.20 Cocaine dependence, uncomplicated; F13.20 Sedative, hypnotic or anxiolytic dependence, uncomplicated; F12.20 Cannabis dependence, uncomplicated; F17.210 Nicotine dependence, cigarettes, uncomplicated; F31.9 Bipolar disorder, unspecified; F19.24 Other psychoactive substance dependence with psychoactive substance-induced mood disorder; Z21 Asymptomatic human immunodeficiency virus [HIV] infection status; G47.00 Insomnia, unspecified; J45.20 Mild intermittent asthma, uncomplicated; K21.9 Gastro-esophageal reflux disease without esophagitis
CPT/HCPCS: 36415; 80053; 82140; 85027; 86780; C9803; U0003; U0005

== ENCOUNTER 2020-10-19 13:29 | Inpatient (IN) | payer OTHER ==
[~2020-10-19 13:29] MED LIST: ACETAMINOPHEN 325 MG TABLET (FP) PO PRN; IBUPROFEN 400 MG TABLET (FP) PO PRN; LOPERAMIDE HCL 2 MG CAPSULE PO PRN; MAG HYDROX/AL HYDROX/SIMETH 30 ML UNIT-DOSE CUP PO PRN; MAGNESIUM CITRATE 300 ML BOTTLE PO PRN; MAGNESIUM HYDROX 2400MG/30ML ORAL SUSPENSION 30 ML CUP PO PRN; MELATONIN 5 MG TABLETS PO SCH; MENTHOL/PHENOL 1 EACH UD MM PRN; NICOTINE POLACRILEX 2 MG GUM BUC PRN; P-EPHED 60MG/TRIPROLIDI 2.5MG TABLET PO PRN; THIAMINE HCL 100 MG TABLET (FP) PO SCH; guaiFENesin 200 MG/10 ML 10 ML UNIT-DOSE CUPS PO PRN; hydrOXYzine PAMOATE 25 MG CAPSULE (FP) PO PRN
[2020-10-19] MEDS ORDERED: P-EPHED 60MG/TRIPROLIDI 2.5MG TABLET PO PRN (14:16)
[2020-10-19] MEDS ORDERED: MAGNESIUM HYDROX 2400MG/30ML ORAL SUSPENSION 30 ML CUP PO PRN (14:17)
[2020-10-19] MEDS ORDERED: LOPERAMIDE HCL 2 MG CAPSULE PO PRN (14:17)
[2020-10-19] MEDS ORDERED: MENTHOL/PHENOL 1 EACH UD MM PRN (14:17)
[2020-10-19] MEDS ORDERED: guaiFENesin 200 MG/10 ML 10 ML UNIT-DOSE CUPS PO PRN (14:17)
[2020-10-19] MEDS ORDERED: IBUPROFEN 400 MG TABLET (FP) PO PRN (14:17)
[2020-10-19] MEDS ORDERED: MAG HYDROX/AL HYDROX/SIMETH 30 ML UNIT-DOSE CUP PO PRN (14:17)
[2020-10-19] MEDS ORDERED: NICOTINE POLACRILEX 2 MG GUM BUC PRN (14:17)
[2020-10-19] MEDS ORDERED: MAGNESIUM CITRATE 300 ML BOTTLE PO PRN (14:17)
[2020-10-19] MEDS: NICOTINE 7 MG/24 HOURS TOPICAL PATCH TD SCH (14:46)
[2020-10-19] MEDS: PRENATAL VITAMINS W/ FOLIC ACID TABLET (FP) PO SCH (14:47)
[2020-10-19] MEDS: LACTULOSE 20 GM/30 ML UDC (FOR ORAL USE ONLY) PO SCH ×5 (14:47→22:01)
[2020-10-19] MEDS: hydrOXYzine PAMOATE 25 MG CAPSULE (FP) PO PRN (22:00)
[2020-10-19] MEDS: MELATONIN 5 MG TABLETS PO SCH (22:01)
[2020-10-19] MEDS: THIAMINE HCL 100 MG TABLET (FP) PO SCH (22:01)
[2020-10-20] MEDS ORDERED: METHADONE 130 MG PO SCH (06:00)
[2020-10-20] MEDS ORDERED: METHADONE HCL 10 MG TABLET ONE (06:20)
[2020-10-20] MEDS ORDERED: METHADONE HCL 40 MG DISPERSABLE TABLET ONE (06:20)
[2020-10-20] MEDS: METHADONE 120 MG, METHADONE 10 MG PO SCH (07:35)
[2020-10-20] MEDS: PRENATAL VITAMINS W/ FOLIC ACID TABLET (FP) PO SCH (10:46)
[2020-10-20] MEDS: LACTULOSE 20 GM/30 ML UDC (FOR ORAL USE ONLY) PO SCH ×4 (10:46→21:02)
[2020-10-20] MEDS: NICOTINE 7 MG/24 HOURS TOPICAL PATCH TD SCH (10:46)
[2020-10-20] MEDS: hydrOXYzine PAMOATE 25 MG CAPSULE (FP) PO PRN (10:47)
[2020-10-20] MEDS ORDERED: MASKS NR ONE (17:26)
[2020-10-20] MEDS: THIAMINE HCL 100 MG TABLET (FP) PO SCH (21:02)
[2020-10-20] MEDS: MELATONIN 5 MG TABLETS PO SCH (21:02)
[2020-10-21] MEDS ORDERED: METHADONE HCL 40 MG DISPERSABLE TABLET ONE (03:20)
[2020-10-21] MEDS ORDERED: METHADONE HCL 10 MG TABLET ONE (03:20)
[2020-10-21] MEDS: METHADONE 120 MG, METHADONE 10 MG PO SCH (08:26)
[2020-10-21] MEDS: PRENATAL VITAMINS W/ FOLIC ACID TABLET (FP) PO SCH (10:13)
[2020-10-21] MEDS: NICOTINE 7 MG/24 HOURS TOPICAL PATCH TD SCH (10:13)
[2020-10-21] MEDS: LACTULOSE 20 GM/30 ML UDC (FOR ORAL USE ONLY) PO SCH ×4 (10:13→23:50)
[2020-10-21] MEDS ORDERED: AMITRIPTYLINE HCL 100 MG TABLET PO SCH (22:00)
[2020-10-21] MEDS: AMITRIPTYLINE HCL PO SCH (22:02)
[2020-10-21] MEDS: THIAMINE HCL 100 MG TABLET (FP) PO SCH (22:02)
[2020-10-21] MEDS: MELATONIN 5 MG TABLETS PO SCH (22:02)
[2020-10-21] MEDS: hydrOXYzine PAMOATE 25 MG CAPSULE (FP) PO PRN (22:03)
[2020-10-22] MEDS ORDERED: METHADONE HCL 40 MG DISPERSABLE TABLET ONE (03:32)
[2020-10-22] MEDS ORDERED: METHADONE HCL 10 MG TABLET ONE (03:32)
[2020-10-22] MEDS: METHADONE 120 MG, METHADONE 10 MG PO SCH (07:10)
[2020-10-22] MEDS: PRENATAL VITAMINS W/ FOLIC ACID TABLET (FP) PO SCH (10:37)
[2020-10-22] MEDS: NICOTINE 7 MG/24 HOURS TOPICAL PATCH TD SCH (10:37)
[2020-10-22] MEDS: LACTULOSE 20 GM/30 ML UDC (FOR ORAL USE ONLY) PO SCH ×4 (10:37→21:14)
[2020-10-22] MEDS: THIAMINE HCL 100 MG TABLET (FP) PO SCH (21:13)
[2020-10-22] MEDS: AMITRIPTYLINE HCL PO SCH (21:13)
[2020-10-22] MEDS: MELATONIN 5 MG TABLETS PO SCH (21:13)
[2020-10-23] MEDS ORDERED: METHADONE HCL 40 MG DISPERSABLE TABLET ONE (04:16)
[2020-10-23] MEDS ORDERED: METHADONE HCL 10 MG TABLET ONE (04:16)
[2020-10-23] MEDS: METHADONE 120 MG, METHADONE 10 MG PO SCH (06:43)
[2020-10-23] MEDS: NICOTINE 7 MG/24 HOURS TOPICAL PATCH TD SCH (10:11)
[2020-10-23] MEDS: PRENATAL VITAMINS W/ FOLIC ACID TABLET (FP) PO SCH (10:11)
[2020-10-23] MEDS: LACTULOSE 20 GM/30 ML UDC (FOR ORAL USE ONLY) PO SCH ×4 (10:11→21:42)
[2020-10-23 11:07] LABS: SARS-CoV-2 NAA Not Detected (Not Detected)
[2020-10-23] MEDS: AMITRIPTYLINE HCL PO SCH (21:43)
[2020-10-23] MEDS: THIAMINE HCL 100 MG TABLET (FP) PO SCH (21:44)
[2020-10-23] MEDS: MELATONIN 5 MG TABLETS PO SCH (21:44)
[2020-10-24] MEDS ORDERED: METHADONE HCL 40 MG DISPERSABLE TABLET ONE ×2 (03:08→09:40)
[2020-10-24] MEDS ORDERED: METHADONE HCL 10 MG TABLET ONE ×2 (03:08→09:40)
[2020-10-24] MEDS: METHADONE 120 MG, METHADONE 10 MG PO SCH ×2 (07:01→09:41)
[2020-10-24] MEDS: PRENATAL VITAMINS W/ FOLIC ACID TABLET (FP) PO SCH (09:42)
[2020-10-24] MEDS: NICOTINE 7 MG/24 HOURS TOPICAL PATCH TD SCH (09:43)
[2020-10-24] MEDS: LACTULOSE 20 GM/30 ML UDC (FOR ORAL USE ONLY) PO SCH ×4 (09:43→21:48)
[2020-10-24] MEDS: AMITRIPTYLINE HCL PO SCH (21:07)
[2020-10-24] MEDS: THIAMINE HCL 100 MG TABLET (FP) PO SCH (21:07)
[2020-10-24] MEDS: MELATONIN 5 MG TABLETS PO SCH (21:07)
[2020-10-25] MEDS: PRENATAL VITAMINS W/ FOLIC ACID TABLET (FP) PO SCH (10:35)
[2020-10-25] MEDS: LACTULOSE 20 GM/30 ML UDC (FOR ORAL USE ONLY) PO SCH ×4 (10:36→21:36)
[2020-10-25] MEDS ORDERED: METHADONE HCL 40 MG DISPERSABLE TABLET ONE (10:36)
[2020-10-25] MEDS: NICOTINE 7 MG/24 HOURS TOPICAL PATCH TD SCH (10:36)
[2020-10-25] MEDS ORDERED: METHADONE HCL 10 MG TABLET ONE (10:37)
[2020-10-25] MEDS: METHADONE 120 MG, METHADONE 10 MG PO SCH (10:38)
[2020-10-25] MEDS ORDERED: MASKS NR ONE (13:05)
[2020-10-25] MEDS: MELATONIN 5 MG TABLETS PO SCH (21:35)
[2020-10-25] MEDS: THIAMINE HCL 100 MG TABLET (FP) PO SCH (21:35)
[2020-10-25] MEDS: AMITRIPTYLINE HCL PO SCH (21:36)
[2020-10-26] MEDS ORDERED: METHADONE HCL 40 MG DISPERSABLE TABLET ONE (09:02)
[2020-10-26] MEDS ORDERED: METHADONE HCL 10 MG TABLET ONE (09:02)
[2020-10-26] MEDS: METHADONE 120 MG, METHADONE 10 MG PO SCH (09:47)
[2020-10-26] MEDS: PRENATAL VITAMINS W/ FOLIC ACID TABLET (FP) PO SCH (09:47)
[2020-10-26] MEDS: LACTULOSE 20 GM/30 ML UDC (FOR ORAL USE ONLY) PO SCH ×4 (09:47→21:06)
[2020-10-26] MEDS: NICOTINE 7 MG/24 HOURS TOPICAL PATCH TD SCH (09:49)
[2020-10-26] MEDS: MELATONIN 5 MG TABLETS PO SCH (21:06)
[2020-10-26] MEDS: AMITRIPTYLINE HCL PO SCH (21:07)
[2020-10-26] MEDS: THIAMINE HCL 100 MG TABLET (FP) PO SCH (21:07)
[2020-10-27] MEDS ORDERED: METHADONE HCL 40 MG DISPERSABLE TABLET ONE (09:10)
[2020-10-27] MEDS ORDERED: METHADONE HCL 10 MG TABLET ONE (09:10)
[2020-10-27] MEDS: PRENATAL VITAMINS W/ FOLIC ACID TABLET (FP) PO SCH (10:49)
[2020-10-27] MEDS: LACTULOSE 20 GM/30 ML UDC (FOR ORAL USE ONLY) PO SCH ×4 (10:49→21:45)
[2020-10-27] MEDS: NICOTINE 7 MG/24 HOURS TOPICAL PATCH TD SCH (10:49)
[2020-10-27] MEDS: METHADONE 120 MG, METHADONE 10 MG PO SCH (10:49)
[2020-10-27] MEDS: THIAMINE HCL 100 MG TABLET (FP) PO SCH (21:44)
[2020-10-27] MEDS: AMITRIPTYLINE HCL PO SCH (21:44)
[2020-10-27] MEDS: MELATONIN 5 MG TABLETS PO SCH (21:44)
[2020-10-28] MEDS ORDERED: METHADONE HCL 40 MG DISPERSABLE TABLET ONE (09:01)
[2020-10-28] MEDS ORDERED: METHADONE HCL 10 MG TABLET ONE (09:02)
[2020-10-28] MEDS: LACTULOSE 20 GM/30 ML UDC (FOR ORAL USE ONLY) PO SCH ×4 (09:39→21:05)
[2020-10-28] MEDS: METHADONE 120 MG, METHADONE 10 MG PO SCH (09:39)
[2020-10-28] MEDS: PRENATAL VITAMINS W/ FOLIC ACID TABLET (FP) PO SCH (09:39)
[2020-10-28] MEDS: NICOTINE 7 MG/24 HOURS TOPICAL PATCH TD SCH (09:40)
[2020-10-28] MEDS: MELATONIN 5 MG TABLETS PO SCH (21:05)
[2020-10-28] MEDS: THIAMINE HCL 100 MG TABLET (FP) PO SCH (21:05)
[2020-10-28] MEDS: AMITRIPTYLINE HCL PO SCH (21:06)
[2020-10-29] MEDS ORDERED: METHADONE HCL 40 MG DISPERSABLE TABLET ONE (08:55)
[2020-10-29] MEDS ORDERED: METHADONE HCL 10 MG TABLET ONE (08:56)
[2020-10-29] MEDS: PRENATAL VITAMINS W/ FOLIC ACID TABLET (FP) PO SCH (10:18)
[2020-10-29] MEDS: LACTULOSE 20 GM/30 ML UDC (FOR ORAL USE ONLY) PO SCH ×4 (10:18→22:08)
[2020-10-29] MEDS: METHADONE 120 MG, METHADONE 10 MG PO SCH (10:18)
[2020-10-29] MEDS: NICOTINE 7 MG/24 HOURS TOPICAL PATCH TD SCH (10:19)
[2020-10-29] MEDS: THIAMINE HCL 100 MG TABLET (FP) PO SCH (22:08)
[2020-10-29] MEDS: AMITRIPTYLINE HCL PO SCH (22:08)
[2020-10-29] MEDS: MELATONIN 5 MG TABLETS PO SCH (22:08)
[2020-10-30] MEDS ORDERED: METHADONE HCL 40 MG DISPERSABLE TABLET ONE (10:13)
[2020-10-30] MEDS: LACTULOSE 20 GM/30 ML UDC (FOR ORAL USE ONLY) PO SCH ×4 (10:13→21:19)
[2020-10-30] MEDS: NICOTINE 7 MG/24 HOURS TOPICAL PATCH TD SCH (10:13)
[2020-10-30] MEDS: PRENATAL VITAMINS W/ FOLIC ACID TABLET (FP) PO SCH (10:13)
[2020-10-30] MEDS ORDERED: METHADONE HCL 10 MG TABLET ONE (10:13)
[2020-10-30] MEDS: METHADONE 120 MG, METHADONE 10 MG PO SCH (10:14)
[2020-10-30] MEDS ORDERED: PT OWN MED DRAWER 7, Y5N ONE (19:32)
[2020-10-30] MEDS: THIAMINE HCL 100 MG TABLET (FP) PO SCH (21:19)
[2020-10-30] MEDS: MELATONIN 5 MG TABLETS PO SCH (21:19)
[2020-10-30] MEDS: AMITRIPTYLINE HCL PO SCH (21:20)
[2020-10-31] MEDS ORDERED: METHADONE HCL 10 MG TABLET ONE (08:48)
[2020-10-31] MEDS ORDERED: METHADONE HCL 40 MG DISPERSABLE TABLET ONE (08:49)
[2020-10-31] MEDS: METHADONE 120 MG, METHADONE 10 MG PO SCH (09:55)
[2020-10-31] MEDS: PRENATAL VITAMINS W/ FOLIC ACID TABLET (FP) PO SCH (09:55)
[2020-10-31] MEDS: LACTULOSE 20 GM/30 ML UDC (FOR ORAL USE ONLY) PO SCH ×4 (09:56→21:22)
[2020-10-31] MEDS: NICOTINE 7 MG/24 HOURS TOPICAL PATCH TD SCH (09:56)
[2020-10-31] MEDS: THIAMINE HCL 100 MG TABLET (FP) PO SCH (21:22)
[2020-10-31] MEDS: MELATONIN 5 MG TABLETS PO SCH (21:22)
[2020-10-31] MEDS ORDERED: AMITRIPTYLINE HCL 75 MG TABLET PO ONE (22:00)
[2020-10-31] MEDS: AMITRIPTYLINE HCL PO SCH (23:24)
[2020-11-01] MEDS ORDERED: METHADONE HCL 10 MG TABLET ONE (08:12)
[2020-11-01] MEDS ORDERED: METHADONE HCL 40 MG DISPERSABLE TABLET ONE (08:13)
[2020-11-01] MEDS: PRENATAL VITAMINS W/ FOLIC ACID TABLET (FP) PO SCH (09:49)
[2020-11-01] MEDS: LACTULOSE 20 GM/30 ML UDC (FOR ORAL USE ONLY) PO SCH ×4 (09:49→21:17)
[2020-11-01] MEDS: METHADONE 120 MG, METHADONE 10 MG PO SCH (09:49)
[2020-11-01] MEDS: NICOTINE 7 MG/24 HOURS TOPICAL PATCH TD SCH (09:50)
[2020-11-01] MEDS ORDERED: PT OWN MED DRAWER 7, Y5N ONE (18:19)
[2020-11-01] MEDS: AMITRIPTYLINE HCL PO SCH (21:19)
[2020-11-01] MEDS: MELATONIN 5 MG TABLETS PO SCH (21:21)
[2020-11-01] MEDS: THIAMINE HCL 100 MG TABLET (FP) PO SCH (21:21)
[2020-11-02 06:59] VITALS: BP 156/81; PULSE 77; TEMP 97.1
[2020-11-02] MEDS ORDERED: METHADONE HCL 10 MG TABLET ONE (09:05)
[2020-11-02] MEDS ORDERED: METHADONE HCL 40 MG DISPERSABLE TABLET ONE (09:06)
[2020-11-02] MEDS ORDERED: ALBUTEROL SO4 HFA INHALER IH PRN (09:09)
[2020-11-02] MEDS ORDERED: ALBUTEROL SO4 HFA INHALER IH ONE (09:19)
[2020-11-02] MEDS: LACTULOSE 20 GM/30 ML UDC (FOR ORAL USE ONLY) PO SCH (09:21)
[2020-11-02] MEDS: METHADONE 120 MG, METHADONE 10 MG PO SCH (09:22)
[2020-11-02] MEDS: PRENATAL VITAMINS W/ FOLIC ACID TABLET (FP) PO SCH (09:22)
[2020-11-02] MEDS: NICOTINE 7 MG/24 HOURS TOPICAL PATCH TD SCH (09:22)
== END 2020-11-02 09:50 | disposition home or self-care (01) | DRG 772 ==
LOC: YASAS 13:29 → Y3W 13:32 → Y5N 10-29 23:53
PROVIDERS: ADMIT Allergy & Immunology; ATTEND Allergy & Immunology
PROC: HZ42ZZZ Group Counseling for Substance Abuse Treatment, Cognitive-Behavioral (ICD-10-PCS; principal; 2020-10-19)
DX: F10.20 Alcohol dependence, uncomplicated (principal); F11.20 Opioid dependence, uncomplicated; F13.20 Sedative, hypnotic or anxiolytic dependence, uncomplicated; F14.20 Cocaine dependence, uncomplicated; F12.20 Cannabis dependence, uncomplicated; F17.210 Nicotine dependence, cigarettes, uncomplicated; F19.24 Other psychoactive substance dependence with psychoactive substance-induced mood disorder; F19.282 Other psychoactive substance dependence with psychoactive substance-induced sleep disorder; F31.9 Bipolar disorder, unspecified; Z21 Asymptomatic human immunodeficiency virus [HIV] infection status; G47.00 Insomnia, unspecified; J45.20 Mild intermittent asthma, uncomplicated; K21.9 Gastro-esophageal reflux disease without esophagitis
CPT/HCPCS: 82140; C9803; U0003; U0005